=== PATIENT | male | born 1990 | race Caucasian/White ===

== ENCOUNTER → 2016-08-21 | Outpatient (CLI) | payer OTHER ==
[~2016-08-21] MED LIST: ACNE TREATMENT28 GM TOP; DEBROX15 ML AU; DIFFERIN TOP; OXTELLAR XR300 MG PO; PAXIL30 MG PO; RISPERDAL0.5 MG PO; RITALIN LA20 MG PO; TRAZODONE HCL100 MG PO; VITAMIN D2000 UNI1 PO
[2016-08-21 12:12] LABS: HEMOGLOBIN 11.7 gm/dl (14.0-17.5); RED BLOOD COUNT 4.2 M/UL (4.20-5.50); WHITE BLOOD COUNT 12.5 K/UL (4.5-11.0)
[2016-08-21 12:31] LABS: BUN/CREATININE RATIO 14 (0-10)
== END ==
LOC: RAD 11:29
PROVIDERS: Nurse Practitioner Primary Care
DX: J69.0 Pneumonitis due to inhalation of food and vomit (principal); R50.9 Fever, unspecified; F84.0 Autistic disorder; R91.8 Other nonspecific abnormal finding of lung field
CPT/HCPCS: 36415; 71020; 80053; 85025; 87040; 87081; 87880

== ENCOUNTER 2016-08-22 09:08 | Emergency (ER) | payer OTHER ==
[2016-08-22 11:33] LABS: HEMOGLOBIN 11.5 gm/dl (14.0-17.5); RED BLOOD COUNT 4.22 M/UL (4.20-5.50); WHITE BLOOD COUNT 9.8 K/UL (4.5-11.0)
[2016-08-22 12:00] LABS: BUN/CREATININE RATIO 13 (0-10)
== END 2016-08-22 13:55 | disposition home or self-care (01) ==
LOC: ER1 09:08
PROVIDERS: Emergency Medicine
DX: J18.9 Pneumonia, unspecified organism (principal); F84.9 Pervasive developmental disorder, unspecified
CPT/HCPCS: 36415; 71020; 80053; 85025; 87040; 99285

== ENCOUNTER 2016-09-08 09:46 | Emergency (ER) | payer OTHER | END 2016-09-08 11:20 | disposition home or self-care (01) | LOC: ER1 09:46 | DX: M79.605 Pain in left leg (principal) | CPT/HCPCS: 73502; 73564; 99283 ==

== ENCOUNTER → 2016-11-16 | Outpatient (CLI) | payer OTHER | LOC: RAD 14:30 | DX: R05 Cough (principal) | CPT/HCPCS: 71020 ==

== ENCOUNTER 2020-12-21 10:56 | Emergency (ER) | payer OTHER ==
[~2020-12-21 10:56] MED LIST changes: +AMOX TR-K CLV1 EAC4 PO; +APTIOM800 MG PO; +COGENTIN 2MG TAB2 MG PO; +KEPPRA1000 MG PO
[2020-12-21 12:45] LABS: HEMOGLOBIN 12.6 gm/dl (14.0-17.5); RED BLOOD COUNT 4.24 M/UL (4.20-5.50); WHITE BLOOD COUNT 7.2 K/UL (4.5-11.0)
[2020-12-21 13:01] LABS: BUN/CREATININE RATIO 15 (0-10)
== END 2020-12-21 16:30 | disposition home or self-care (01) ==
LOC: ER1 10:56
DX: R56.9 Unspecified convulsions (principal); Z88.8 Allergy status to other drugs, medicaments and biological substances; Z20.822 Contact with and (suspected) exposure to COVID-19
CPT/HCPCS: 0240U; 71045; 80053; 82550; 82553; 83605; 83735; 83874; 84100; 84484; 85025; 85652; 86140; 93005; 99284